=== PATIENT | female | born 1980 | race Caucasian/White ===

== ENCOUNTER 2019-07-13 09:26 | Inpatient (IN) | payer OTHER ==
[~2019-07-13] VITALS: Ht 182.9 cm; Wt 104.3 kg
[2019-07-13] MEDS ORDERED: ALEVE220 M1 PO (16:38)
[2019-07-13] MEDS ORDERED: BENADRYL ALLERG25 MG PO (16:38)
--- NOTE | 2019-07-14 11:54 | HP ---
[facility] [address] [place], [place] [address] Signed ADMISSION DATE: 07/13/2019 REASON FOR ADMISSION: Acute calculous cholecystitis. HISTORY OF PRESENT ILLNESS: This obese 39-year-old white woman presented to the emergency room today and evaluated by Dr. Arevalo and found to have a 2 cm gallstone wedged in the infundibulum of the gallbladder with local tenderness, but without white count elevation or fever. Her problems began yesterday when she had vague epigastric and right subcostal pain. She said it was "like my allergies to food." She has had longstanding symptoms of epigastric and right subcostal pain, which she attributes to various foods including sweet potatoes and other items, but none that are successively fatty. She presented to the Urgent Care Clinic, was evaluated by a provider there whose lab evaluation was normal. Her pain subsided largely by the end of the visit and she was discharged home. She had accelerating and worsening pain in the epigastric and right subcostal area and presented then to the emergency room today, evaluated by Dr. Arevalo, where liver enzymes were slightly elevated including a SGOT of 88 and SGPT of 54 yesterday, but were markedly more elevated today. Electrolytes otherwise normal. Amylase and lipase were normal. White count was normal at 10.1 and hematocrit was 40.4. The patient is considered to currently be having her period. I was advised that her beta-hCG was negative though I did not see it on the lab study. The patient is said to have had "the flu" approximately a week and a half ago, which manifest as a fever and a cough, but which has resolved entirely. Mindful of the COVID epidemic currently gripping the world. She did not have any other symptoms and her symptoms now are largely resolved. PAST MEDICAL HISTORY: Significant for placement of intrauterine device (IUD). She has not had abdominal surgery in the past. SOCIAL HISTORY: She is unmarried. She has never had children. She is now living with her parents here in [place], she was previously from [place]. 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 Electronically Signed By: IKER MAR MD 07/14/19 1154 PATIENT NAME: ALEX CANTRELL HISTORY AND PHYSICAL DATE OF : 80 REPORT #: [id number] PHYSICIAN: IKER MAR MD PCP: NO PRIMARY CARE PHYSICIAN REPORT IS CONFIDENTIAL AND NOT TO BE RELEASED WITHOUT AUTHORIZATION [facility] [address] [place], [place] [address] Signed REVIEW OF SYSTEMS: She denies any sore throat. Her cough is largely resolved. She has no shortness of breath currently. Her pain is in the epigastric and right subcostal area with some radiation into the right subscapular area. PHYSICAL EXAMINATION: GENERAL: This is a somewhat obese, white woman, who does not look to be systemically toxic. HEENT: Mucous membranes are dry. Trachea is midline. CHEST: Shows normal respiratory excursion. She has no tachypnea. HEART: Regular. ABDOMEN: Obese, but soft. There is no sign of prior incision. There is a tattoo in the right abdomen. There is tenderness in the epigastric and right subcostal area. There is no mass. She has no ascites. EXTREMITIES: Show no clubbing, cyanosis, or edema. LABORATORY STUDIES: Show normal electrolytes. Liver enzymes as previously noted. Amylase 40 and lipase 46. White count 10.1, hematocrit 40.1, and platelets 257,000. Ultrasound examination report confirms a 2 cm gallstone impacted at the neck of the gallbladder with borderline wall thickening. There is no sign of intrahepatic ductal dilatation. Right kidney appears to be normal. LFT and bilirubin markedly elevated including a bilirubin greater than 3.0 ASSESSMENT: The patient has acute calculous cholecystitis. Her symptoms have been increasing since yesterday. She is manifesting more symptoms than yesterday. She is somewhat dehydrated and fluid administration will be undertaken at this time as well as administration of Ancef 2 g and Pepcid 20 mg IV. She last ate this morning, but only had some olive oil as a home remedy for possible gallstones as recommended that by her mother (who has had cholecystectomy for gallstones herself). I reviewed the ultra sound with DR Moran and he agrees there is a large gallstone wedged into the infundibulum, and thickening of the gallbladder wall... there is mild ductal dilatation of the biliary treee. The risks of bleeding, infection, bile duct injury, need for open procedure and other unforeseen complications related to cholecystectomy reviewed in detail. She understands and agrees to proceed. Additionally discussed the occasional need for common duct exploration, open or laparoscopic. Electronically Signed By: IKER MAR MD 07/14/19 1154 PATIENT NAME: ALEX CANTRELL HISTORY AND PHYSICAL DATE OF : [birth year] REPORT #: [id number] PHYSICIAN: IKER MAR MD PCP: NO PRIMARY CARE PHYSICIAN REPORT IS CONFIDENTIAL AND NOT TO BE RELEASED WITHOUT AUTHORIZATION [facility] [address] [place] [address] Signed MD ALEXX Fermin/MODL /[id number] cc: [facility], [facility] Dr. Arevalo [facility] Copies: ~ Electronically Signed By: IKER MAR MD 07/14/19 1154 PATIENT NAME: ALEX CANTRELL HISTORY AND PHYSICAL DATE OF : [birth year] REPORT #: [id number] PHYSICIAN: IKER MAR MD PCP: NO PRIMARY CARE PHYSICIAN REPORT IS CONFIDENTIAL AND NOT TO BE RELEASED WITHOUT AUTHORIZATION
--- NOTE | 2019-07-14 11:54 | OR ---
[facility] [address] [place], [place] [address] Signed DATE OF OPERATION: 07/13/2019 SURGEON: Iker Mar MD PREOPERATIVE DIAGNOSES: 1. Acute calculous cholecystitis. 2. Morbid obesity. POSTOPERATIVE DIAGNOSES: 1. Severe acute calculous cholecystitis; white bile in gallbladder. 2. Choledocholithiasis with obstruction of common duct. PROCEDURES: 1. Laparoscopic cholecystectomy with laparoscopic common bile duct exploration (transcystic duct). ... prlonged complicated and difficult. 2. Balloon dilation of ampulla with flushing of common duct. 3. Flexible choledochoscopy with extraction of common bile duct stones. 4. Surgeon-directed fluoroscopy. ANESTHESIA: General endotracheal; Iker Lilly CRNA, and local 20 mL of 0.25% Marcaine with epinephrine. INDICATION: This morbidly obese 39-year-old white woman presented to the emergency room today having been seen in the Urgent Care Clinic yesterday with right upper abdominal and epigastric pain. The patient has had similar symptoms in the past, which she has always attributed to food allergies. It has been going on at least six years. Her presentation to the Urgent Care Clinic yesterday allowed for resolution of her pain and recurred upon her release from the clinic and was quite severe by this morning she presented to the emergency room where she was evaluated by Dr. Arevalo. Liver enzymes were obtained yesterday showing elevated SGPT and SGOT, but normal alkaline phosphatase and bilirubin. White count was normal. Todays labs showed marked increase in liver enzymes and bilirubin as well. An ultrasound was performed which showed a 2 cm gallstone impacted in the infundibulum of the gallbladder and some biliary ductal dilatation. Thickening of the gallbladder wall was noted as well. She was given intravenous fluid resuscitation, IV antibiotics and so forth and is now to undergo cholecystectomy preferred by laparoscopic approach. The risks of bleeding, Electronically Signed By: IKER MAR MD 07/14/19 1154 PATIENT NAME: ALEX CANTRELL OPERATIVE REPORT DATE OF : 80 REPORT #: [id number] PHYSICIAN: IKER MAR MD PCP: NO PRIMARY CARE PHYSICIAN REPORT IS CONFIDENTIAL AND NOT TO BE RELEASED WITHOUT AUTHORIZATION [facility] [address] [place], [place] [address] Signed infection, bile duct injury, need for open procedure, need for common bile duct exploration were all reviewed in detail. She understands and she wished to proceed. FINDINGS: Indeed the gallbladder was markedly inflamed. Omental adhesions were noted to the infundibulum of the gallbladder. The infundibulum of the gallbladder was firm with the obstructing stone and cystic duct was rather dilated as was the common bile duct. Initial cholangiogram showed flow into the biliary tree, which was somewhat distended and the distal common duct appeared to be obstructed and no passage of bile through it. Glucagon was unsuccessful in allowing for passage. On that basis, a transcystic duct exploration was undertaken, which included balloon dilation of the ampulla with flushing of the common bile duct without resolution of the obstruction thus requiring flexible choledochoscopy and extraction of stone material. Completion cholangiogram did show flow into the duodenum and notably the choledochoscope ultimately was passed into the duodenum, showing no sign of obstruction. DESCRIPTION OF PROCEDURE: The patient was brought to the operating room, given a general endotracheal anesthetic. COVID precautions were undertaken, given the current status of the pandemic at this time. The abdomen was prepared with a chlorhexidine solution and draped sterilely. She had received preoperative antibiotic Ancef. Sequential compression device stockings and Pepcid intravenously administered. After sterile preparation of the abdomen and draping, an infraumbilical incision was made and using an open Dax cannula technique, pneumoperitoneum was achieved to a level of 14 mmHg of carbon dioxide gas. Intraabdominal inspection showed no sign of ascites or carcinomatosis. The gallbladder was markedly tense and distended and inflamed. The liver was surprisingly normal despite her body habitus. Three additional trocars were placed in usual configuration in the subxiphoid, right midclavicular, and right anterior axillary line. The gallbladder was able to be grasped and elevated cephalad through the wall was quite markedly thickened. Considerable amount of dissection was required to remove omental adhesions, which had engulfed a bulbous appearing infundibulum. This represented the impacted stone, no doubt. Once the triangle of Calot was dissected free , it was quite clear that the cystic duct and the common duct were rather dilated. A window was created allowing for good definition of the cystic duct and a clip applied across gallbladder cystic duct junction. A transverse choledochotomy was made in the cystic duct allowing for egress of crystal clear bile. Obrien-type cholangiocatheter was used to provide curtis cholangiography. Free flow of the contrast material gathered at the distal duct and although there was not a meniscus, there was no flow into the duodenum. It was inquired and found that the patient had Electronically Signed By: IKER MAR MD 07/14/19 1154 PATIENT NAME: ALEX CANTRELL OPERATIVE REPORT DATE OF : 80 REPORT #: [id number] PHYSICIAN: IKER MAR MD PCP: NO PRIMARY CARE PHYSICIAN REPORT IS CONFIDENTIAL AND NOT TO BE RELEASED WITHOUT AUTHORIZATION [facility] [address] [place], [place] [address] Signed been administered morphine by the grease man perioperatively and therefore glucagon 1 mg was administered. After 5 minutes of wait time cholangiography was repeated, still showing no flow into the duodenum. On that basis transcystic duct exploration was deemed advisable. A flexible wire for common duct exploration was passed after passing another Taut type trocar in alignment with the cystic duct. The wire was passed under fluoroscopic control into the duodenum without problem. An ERCP balloon catheter was then passed over the wire, again under direct visualization aligning the 2 bland designated on the balloon over the ampulla itself. Dilation was undertaken with a 10 mL syringe with contrast material. The balloon was decompressed and the catheter withdrawn over the wire, allowing for some minimal dilation of the cystic duct though it was not really necessary given its size. Antegrade flushing of the infusion port with contrast material still showed no sign of passage into the duodenum, but did show an obvious filling defect consistent with stone in the distal duct. On that basis, the balloon catheter assembly including the wire was carefully withdrawn from the biliary tree. A flexible nephroscope was then carefully passed down the trocar insinuated into the cystic duct. A separate system was used to allow for dual visualization of the common duct externally as well as the cystic duct internally. The choledochal scope was passed into the common bile duct and ultimately identified as some stone debris. Using a flexible basket the stone debris was withdrawn and removed. Several passes were taken to assure the clearance. Ultimately, the scope was passed into the cystic duct in the common duct and passed all the way into the duodenum showing a normal duodenal mucosa. Careful withdrawal of scope showed minimal and insignificant shards of yellow cholesterol debris, but no well-formed stones at that point. Repeat cholangiography was then undertaken using the Obrien system. This showed contrast flow into the biliary tree and emptying into the duodenum. There was some retrograde pancreatogram noted as well. The choledochal scope was removed. The cystic duct was triply clipped and subsequently secured with a #0 PDS Endoloop after transection of the cystic duct. The gallbladder was dissected free in a retrograde fashion using electrocautery. One small entry into the common duct spilled crystal clear bile (white bile). The gallbladder was placed in an endobag and extracted through the infraumbilical port site without problem, opened on the back table and found to have a pale chronically inflamed mucosal surface and a 2 cm rather dark well-formed round gallstone and no other debris. This made me consider that stone debris within the common duct may have been performed de obed. Electronically Signed By: IKER MAR MD 07/14/19 1154 PATIENT NAME: ALEX CANTRELL OPERATIVE REPORT DATE OF : 80 REPORT #: [id number] PHYSICIAN: IKER MAR MD PCP: NO PRIMARY CARE PHYSICIAN REPORT IS CONFIDENTIAL AND NOT TO BE RELEASED WITHOUT AUTHORIZATION [address] [address] Signed Irrigation was undertaken in the subhepatic space showing no sign of bile leak, bleeding or other problems. Through a right-sided trocar site, a 7 mm flat Luan drain was placed in the subhepatic space. Excess irrigation fluid was suctioned free. The trocars were removed without problem showing no sign of bleeding. The infraumbilical fascial incision was reapproximated with interrupted 0 Vicryl suture as well as a running 0 PDS suture. Irrigation was undertaken and 20 mL of 0.25% Marcaine with epinephrine was injected locally. The skin was then closed with interrupted 3-0 Vicryl. Steri-Strips were applied. The patient was ultimately extubated, transferred to recovery room in good condition having suffered no complications. Sponge, needle, and instrument counts reported as correct x3. The operation was prolonged complicated and difficult related to extensive common duct clearance, lasting from 12:45 pm to 3 pm, considered 4 times longer than usual. Iker Mar MD JM/MODL /[id number] Copies: ~ Electronically Signed By: IKER MAR MD 07/14/19 1154 PATIENT NAME: ALEX CANTRELL OPERATIVE REPORT DATE OF : 80 REPORT #: [id number] PHYSICIAN: IKER MAR MD PCP: NO PRIMARY CARE PHYSICIAN REPORT IS CONFIDENTIAL AND NOT TO BE RELEASED WITHOUT AUTHORIZATION
[2019-07-15] MEDS ORDERED: SIMETHICONE80 MG PO (09:33)
[2019-07-15] MEDS ORDERED: TYLENOL EXTRA500 MG PO (09:33)
[2019-07-15] MEDS ORDERED: OXYCODON-ACETA1 EAC2 PO (09:33)
[2019-07-15] MEDS ORDERED: ACETAMINOPHEN500 M1 PO (10:29)
[2019-07-15] MEDS ORDERED: GAS RELIEF 8080 MG PO (10:30)
--- NOTE | 2019-07-16 17:14 | DS ---
[facility] [address] [facility] [place] [address] Signed ADMISSION DATE: 07/13/2019 DISCHARGE DATE: 07/15/2019 REASON FOR ADMISSION: This 39-year-old obese white woman presented to the emergency room on the day of admission, evaluated by Dr. Arevalo and found to have a gallbladder showing a thickened gallbladder wall with an impacted 2 cm gallstone in the infundibulum of the gallbladder. She has complained of vague epigastric and right subcostal pain. She had no fever or white count, but was considered likely to have acute cholecystitis based on tenderness in the right upper abdomen. Notably, she had been seen by Ferny Panchal the day before in the outpatient clinic showing only mild liver enzyme elevation. Her liver enzymes were markedly elevated on presentation to emergency room with a bilirubin of 3.0 and AST of 697, ALT 731, alkaline phosphatase 252. Amylase was normal at 52. She was admitted for further evaluation and care. PERTINENT PHYSICAL EXAMINATION: GENERAL: Showed a tall white woman who appeared to be in moderate discomfort. She showed no sign of systemic toxicity. HEENT: Mucous membranes were dry. Trachea midline. CHEST: Clear. HEART: Regular. ABDOMEN: Obese and soft. There is tenderness in the epigastric and right subcostal areas. There are no palpable mass or no ascites. EXTREMITIES: Showed no clubbing, cyanosis, or edema. LABORATORY DATA: CBC showed a white count of only 6.0, hematocrit is 42.3, platelets 246,000. Electrolytes normal, creatinine 0.63, bilirubin 3.0, AST 697, ALT 731, alkaline phosphatase 252, lipase 52. Urinalysis was normal. HOSPITAL COURSE: The patient was given fluid resuscitation, intravenous antibiotic Ancef, and given the current pandemic and expediency for which prompt cholecystectomy would be beneficial to the health to preservation of beds, cholecystectomy was performed same day. She was found to have markedly inflamed, tensed and distended gallbladder with dense adhesions to the infundibulum. The cholangiogram showed no flow of contrast into the duodenum prompting laparoscopic common bile duct exploration, which included passage of Electronically Signed By: IKER MAR MD 07/16/19 1714 PATIENT NAME: ALEX CANTRELL DISCHARGE SUMMARY DATE OF : 80 REPORT #: [id number] PHYSICIAN: IKER MAR MD PCP: NO PRIMARY CARE PHYSICIAN REPORT IS CONFIDENTIAL AND NOT TO BE RELEASED WITHOUT AUTHORIZATION [facility] [address] [place], [place] [address] Signed wire, dilation of ampulla, flushing of duct and ultimately flexible choledochoscopy and extraction of stone material in the distal duct. The gallbladder once excised showed white bile (clear bile), a large impacted gallstone and no evidence of malignancy of the surface of the gallbladder. Given the extent of operation, a drain was placed. Postoperatively, the patient did well overall. She had some mild nausea and intolerance of oral intake initially. Drain showed no sign of bile leak. By the following day, postoperative day #2, she is ambulating well, tolerating a regular diet, has minimal incisional pain and the drain was removed. It is anticipated she will return to see us in 4-6 weeks. She is encouraged to walk on a daily basis. She should still practice social distancing given the current pandemic in this early stage and additionally should maintain social distancing until seen back in the office. She is to lift no more than 20 pounds for the next 2 weeks. She will keep Steri-Strips on and is permitted to shower. DISCHARGE MEDICATIONS: Will include Percocet 7.5/325 1-2 p.o. q.4 hours as needed for pain #10, also Tylenol Extra Strength 500 mg two tablets p.o. q.8 hours as needed for pain #60, simethicone 160 mg p.o. q.4 hours as needed for "gas" #30 refill two. She will continue with naproxen that she has already, which is 220 mg 1-2 as needed daily for pain. DISCHARGE DIAGNOSES: 1. Severe acute calculous cholecystitis with choledocholithiasis and common duct obstruction. 2. Status post laparoscopic cholecystectomy with laparoscopic common bile duct exploration, flexible choledochoscopy with extraction of stone and completion cholangiogram. 3. Morbid obesity. 4. History of "flu" two weeks ago. 5. Obesity. Iker Mar MD /LEONORL /[id number] Electronically Signed By: IKER MAR MD 07/16/19 1714 PATIENT NAME: ALEX CANTRELL DISCHARGE SUMMARY DATE OF : 80 REPORT #: [id number] PHYSICIAN: IKER MAR MD PCP: NO PRIMARY CARE PHYSICIAN REPORT IS CONFIDENTIAL AND NOT TO BE RELEASED WITHOUT AUTHORIZATION [address] [address] Signed cc: ROD Nicole Copies: FERNY PANCHAL ~ Electronically Signed By: IKER MAR MD 07/16/19 1714 PATIENT NAME: ALEX CANTRELL PÉREZ DISCHARGE SUMMARY DATE OF : 80 REPORT #: [id number] PHYSICIAN: IKER MAR MD PCP: NO PRIMARY CARE PHYSICIAN REPORT IS CONFIDENTIAL AND NOT TO BE RELEASED WITHOUT AUTHORIZATION
--- NOTE | 2019-07-17 12:34 | PATH ---
[facility] [address] [place], [place] [address] Signed SPECIMEN(S): A GALLBLADDER AND STONE SPECIMEN SOURCE: A. GALLBLADDER AND STONE CLINICAL HISTORY: Cholelithiasis. FINAL PATHOLOGIC DIAGNOSIS: Gallbladder and stone, cholecystectomy: - Cholelithiasis and acute cholecystitis. DDF:caw:[id number] MICROSCOPIC EXAMINATION: Histologic sections of all submitted blocks are examined by light microscopy. These findings, together with the gross examination, support the pathologic diagnosis. GROSS DESCRIPTION: The specimen, labeled "TS," and designated on the requisition "gallbladder," is received in formalin and consists of Specimen: Previously opened gallbladder. Dimensions: 8.2 cm in length and 4.5 cm inner circumference. Serosa: Violaceous and smooth. Cystic Duct: Unobstructed. Calculi: One dark brown gallstones within the container that measure 1.8 cm in greatest dimension. Mucosa: Wheatley-vizcaino smooth. Wall thickness: 0.3 cm. Lymph node: No pericystic lymph nodes are grossly identified. Additional: None. [employer] sections are submitted in cassette (A1). JS (under the direct supervision of a pathologist) The Gross Description was prepared using a voice recognition system. The report was reviewed for accuracy; however, sound-alike word errors, addition and/or deletions may occur. If there is any question about this report, please contact Client Services. PERFORMING LABORATORY: The technical component was performed by [employer], [address] [place] [id number] (Senior Care Assistant: Rose Covington MD; CLIA# [id number]). The PATIENT NAME: ALEX CANTRELL PATHOLOGY DATE OF : 80 REPORT #: [id number] PHYSICIAN: RADHA PATHOLOGY PCP: NO PRIMARY CARE PHYSICIAN REPORT IS CONFIDENTIAL AND NOT TO BE RELEASED WITHOUT AUTHORIZATION [facility] [address] [place], [place] [address] Signed professional interpretation was performed by [facility], [facility], [address] [place] [address]. Diagnostician: Bruce Foss DO Pathologist Electronically Signed 07/17/2019 Copies: ~ PATIENT NAME: ALEX CANTRELL PATHOLOGY DATE OF : 80 REPORT #: [id number] PHYSICIAN: RADHA PATHOLOGY PCP: NO PRIMARY CARE PHYSICIAN REPORT IS CONFIDENTIAL AND NOT TO BE RELEASED WITHOUT AUTHORIZATION
== END 2019-07-15 11:35 | disposition home or self-care (01) | DRG 419 ==
LOC: ED 09:26 → MS 09:28
PROVIDERS: ADMIT Surgery
PROC: 0FC94ZZ Extirpation of Matter from Common Bile Duct, Percutaneous Endoscopic Approach (ICD-10-PCS; 2019-07-13)
PROC: 0FT44ZZ Resection of Gallbladder, Percutaneous Endoscopic Approach (ICD-10-PCS; principal; 2019-07-13 11:30)
PROC: BF101ZZ Fluoroscopy of Bile Ducts using Low Osmolar Contrast (ICD-10-PCS; 2019-07-13 11:30)
DX: K80.63 Calculus of gallbladder and bile duct with acute cholecystitis with obstruction (principal); E66.01 Morbid (severe) obesity due to excess calories; Z68.31 Body mass index [BMI] 31.0-31.9, adult
CPT/HCPCS: 00790; 36415; 74300; 76705; 80053; 81001; 82150; 82247; 82465; 83615; 83690; 84100; 84478; 84550; 84703; 85025; 88304; 96372; 96374; 96375; 96376; 99285-25; C1726; C1769; C1894; G0378; J0690; J1100; J1610; J1644; J1885; J2270; J2405; J2704; J3010; J7121; Q9967